=== PATIENT | female | born 1990 | race Native Hawaiian/Other Pacific Islander ===

== ENCOUNTER 2017-08-30 20:47 | Observation (INO) | payer OTHER ==
[~2017-08-30] VITALS: Ht 154.9 cm; Wt 61.9 kg
[2017-08-30 21:07] VITALS: BP 148/96; TEMP 97.7
[2017-08-30 21:12] LABS: PLATELET COUNT 347 K/uL (152-353)
[2017-08-30 21:26] LABS: POTASSIUM 5.2 mmol/L (3.6-5.2)
[2017-08-31 02:31] LABS: POTASSIUM 4.1 mmol/L (3.6-5.2)
[2017-08-31 04:57] VITALS: BP 104/65; TEMP 98.6; Ht 154.9 cm; Wt 61.9 kg
[2017-08-31 08:18] LABS: POTASSIUM 3.6 mmol/L (3.6-5.2)
[2017-08-31 08:30] VITALS: BP 95/59; TEMP 98.2
== END 2017-08-31 12:40 | disposition home or self-care (01) ==
LOC: ED 20:47 → MED/SURG 08-31 02:55
PROVIDERS: ADMIT Family Medicine
DX: E10.65 Type 1 diabetes mellitus with hyperglycemia (principal); Z79.4 Long term (current) use of insulin
CPT/HCPCS: 36415; 36600; 80048; 80053; 81000; 82805; 82947; 82948; 83036; 85027; 96361; 96365; 96366; 96372; 96374; 96375; 96376; 99220; 99284; G0378; J1815; J2405